=== PATIENT | female | born 1955 | race Caucasian/White ===

== ENCOUNTER → 2017-09-22 | Outpatient (CLI) | payer OTHER ==
--- NOTE | 2017-09-23 07:07 | MM ---
Reason for exam: screening (asymptomatic). Last mammogram was performed 1 year and 2 months ago. History: Patient is postmenopausal and had first child at age 36. Family history of breast cancer in maternal aunt at age 70. Physical Findings: A clinical breast exam by your physician is recommended on an annual basis and results should be correlated with mammographic findings. MG Screening Mammo w CAD Bilateral CC and MLO view(s) were taken. Prior study comparison: July 30, 2016, bilateral MG screening mammo w CAD. July 08, 2015, bilateral MG screening mammo w CAD. There are scattered fibroglandular densities. Finding: There are typically benign round, regional calcifications in the right breast. There is no discrete abnormality. ASSESSMENT: Benign, BI-RAD 2 RECOMMENDATION: Routine screening mammogram of both breasts in 1 year.
== END | disposition home or self-care (01) ==
LOC: RADMAMWWP 08:56
PROVIDERS: ATTEND Family Medicine
DX: Z12.31 Encounter for screening mammogram for malignant neoplasm of breast (principal)

== ENCOUNTER → 2018-04-23 | Outpatient (CLI) | payer OTHER ==
--- NOTE | 2018-04-23 12:47 | CT ---
EXAMINATION TYPE: CT abdomen pelvis w con DATE OF EXAM: 04/23/2018 REFERENCE: NONE HISTORY: [id number] ELEVATEDWBC R1030 LOWER ABD PAIN R509 FEVER HISTORY: Back pain, pelvic pain, rectal pain, fever REFERENCE: NONE CT DLP: 756 mGy Automated exposure control for dose reduction was used. TECHNIQUE: Helical acquisition through the abdomen and pelvis was obtained following the oral ingesti on of with Oral Contrast and following intravenous administration of 100 mL of Isovue 300. The data w as reformatted in axial, coronal and sagittal projections. FINDINGS: Visualized portions of the lungs are clear. There is no pleural or pericardial fluid. The heart is not enlarged. Within the abdomen, there are multiple gallstones within the gallbladder. The liver and spleen are no rmal. Both adrenal glands are normal. There are parapelvic cysts involving the left kidney. The right kidney appears normal. The pancreas is unremarkable. There is no significant retroperitoneal, iliac or inguinal adenopathy. Uterus and ovaries are not visualized. The bladder is not distended. There is a 9.2 cm area of concentric narrowing involving the distal descending colon and proximal sig moid colon. There is some mild associated adjacent inflammatory change. Although this may represent d iverticulitis, neoplasm would need to BE excluded. The appendix is normal. Small bowel loops are normal. There is a small left paracentral ventral hernia containing fat only with a 2 cm mouth. There is no free fluid and no free air. There is degenerative disc disease at L5-S1. There is mild facet arthropathy at this level. No bony d estructive lesion is seen. IMPRESSION: 1. LONG SEGMENT NARROWING OF THE DISTAL DESCENDING COLON AND PROXIMAL SIGMOID COLON WHICH MAY REPRESE NT DIVERTICULITIS. NEOPLASM WOULD NEED TO BE EXCLUDED. 2. CHOLELITHIASIS. 3. SMALL VENTRAL HERNIA CONTAINING FAT ONLY. 4. MILD DEGENERATIVE CHANGES WITHIN THE SPINE.
== END | disposition home or self-care (01) ==
LOC: RADCTMAIN 10:01
PROVIDERS: ATTEND Family Medicine
DX: K56.699 Other intestinal obstruction unspecified as to partial versus complete obstruction (principal); K80.20 Calculus of gallbladder without cholecystitis without obstruction; K43.9 Ventral hernia without obstruction or gangrene
CPT/HCPCS: 74177; Q9967

== ENCOUNTER → 2018-05-05 | Outpatient (CLI) | payer OTHER ==
--- NOTE | 2018-05-05 14:03 | CT ---
EXAMINATION TYPE: CT abdomen pelvis wo con DATE OF EXAM: 05/05/2018 COMPARISON: 04/23/2018 HISTORY: 62-year-old female Lower Abdominal Pain; Fever CT DLP: 880 mGycm. Automated exposure control for dose reduction was used. TECHNIQUE: Contiguous axial scanning of the abdomen and pelvis without IV contrast. Coronal and sagit roseanne reconstructions performed. FINDINGS: Heart normal size with trace basilar pericardial fluid. Strandy atelectasis inferior lingula. No pleu ral effusion. Noncontrast appearance of the liver, adrenal glands, right kidney, left kidney with parapelvic cysts, spleen, and pancreas show no gross abnormal mobility. No abnormal gallbladder distention. Small stones are present measuring up to 5 mm. No dilated small bowel, free fluid, or free air. Normal appendix. Oral contrast progressed to the hepatic flexure. Mild stool burden. There is sigmoid diverticulosis with mild wall thickening and mild surrounding inflammation proximal to mid sigmoid c olon, refer to axial images. Along the mid sigmoid, there is close apposition with the vaginal cuff and some possible bridging sof t tissue. Air within the cuff is noted. Refer to axial image 67 and coronal image 43. Scattered nonenlarged retroperitoneal lymph nodes. Bladder is urine distended. Uterus surgically absent. Changes along the vaginal cuff as mentioned abo ve. No abnormal fluid collection in the pelvis or pelvic lymphadenopathy seen. Bones: Mild degenerative changes at the hips. No osseous destructive process. IMPRESSION: 1. Sigmoid diverticulosis. The inflammatory changes along the proximal to mid sigmoid are significan tly improved from 04/23/2018; there could be either residual inflammation or new mild acute diverticul itis. Correlate with direct visualization after successful treatment. No abscess or free air. 2. Possible bridging soft tissue at the mid sigmoid contacting the vaginal cuff where some small foc i of air are present. Correlate to exclude the possibility of a postinflammatory colovaginal fistula. 3. Cholelithiasis.
== END | disposition home or self-care (01) ==
LOC: RADCTMAIN 10:17
PROVIDERS: ATTEND Family Medicine
DX: K57.30 Diverticulosis of large intestine without perforation or abscess without bleeding (principal); K80.20 Calculus of gallbladder without cholecystitis without obstruction
CPT/HCPCS: 74176

== ENCOUNTER → 2018-09-29 | Outpatient (CLI) | payer OTHER ==
--- NOTE | 2018-10-03 09:36 | MM ---
Reason for exam: screening (asymptomatic). Last mammogram was performed 1 year ago. History: Patient is postmenopausal and had first child at age 36. Family history of breast cancer in maternal aunt at age 70. Physical Findings: A clinical breast exam by your physician is recommended on an annual basis and results should be correlated with mammographic findings. MG Screening Mammo w CAD Bilateral CC and MLO view(s) were taken. Prior study comparison: September 22, 2017, bilateral MG screening mammo w CAD. July 30, 2016, bilateral MG screening mammo w CAD. There are scattered fibroglandular densities. No significant changes when compared with prior studies. ASSESSMENT: Benign, BI-RAD 2 RECOMMENDATION: Routine screening mammogram of both breasts in 1 year.
== END | disposition home or self-care (01) ==
LOC: RADMAMWWP 13:54
PROVIDERS: ATTEND Family Medicine
DX: Z12.31 Encounter for screening mammogram for malignant neoplasm of breast (principal)
CPT/HCPCS: 77067

== ENCOUNTER → 2020-09-06 | Outpatient (CLI) | payer OTHER ==
--- NOTE | 2020-09-06 13:48 | XR ---
EXAMINATION TYPE: XR wrist complete LT DATE OF EXAM: 09/06/2020 COMPARISON: None HISTORY: Chronic wrist pain following fall one year prior TECHNIQUE: Three-view left wrist FINDINGS: Scaphoid appears intact. Scapholunate space is preserved. There is a cyst within the lunate . Alignment is normal. No acute or subacute fractures are evident. No old nonunion of fractures is iden tified. Joint spaces are preserved. IMPRESSION: 1. No acute or subacute osseous abnormality.
--- NOTE | 2020-09-06 13:49 | XR ---
EXAMINATION TYPE: XR knee complete bilateral DATE OF EXAM: 09/06/2020 COMPARISON: 08/10/2011 HISTORY: Bilateral knee pain TECHNIQUE: 3 views bilateral knees FINDINGS: Left knee: No joint effusion is evident. No acute fracture or dislocation is evident. Joint spaces appear preserved. Right knee: No joint effusion is evident. Joint spaces appear preserved. Tiny medial tibial plateau s pur is present and may be new. IMPRESSION: 1. No acute osseous abnormality bilateral knees.
== END | disposition home or self-care (01) ==
LOC: RADXRYALE 10:15
PROVIDERS: ATTEND Family Medicine
DX: M25.561 Pain in right knee (principal); M25.562 Pain in left knee; M25.532 Pain in left wrist

== ENCOUNTER → 2021-08-22 | Outpatient (CLI) | payer OTHER ==
--- NOTE | 2021-08-26 13:39 | MM ---
Reason for exam: screening (asymptomatic). Last mammogram was performed 2 years and 11 months ago. History: Patient is postmenopausal and had first child at age 36. Family history of breast cancer in maternal aunt at age 70. Physical Findings: A clinical breast exam by your physician is recommended on an annual basis and results should be correlated with mammographic findings. MG Screening Mammo w CAD Bilateral CC and MLO view(s) were taken. Prior study comparison: September 29, 2018, bilateral MG screening mammo w CAD. September 22, 2017, bilateral MG screening mammo w CAD. There are scattered fibroglandular densities. There is chronic nodularity in the left breast. No significant changes when compared with prior studies. ASSESSMENT: Negative, BI-RAD 1 RECOMMENDATION: Routine screening mammogram of both breasts in 1 year.
== END | disposition home or self-care (01) ==
LOC: RADMAMWWP 13:43
PROVIDERS: ATTEND Family Medicine
DX: Z12.31 Encounter for screening mammogram for malignant neoplasm of breast (principal); Z80.3 Family history of malignant neoplasm of breast
CPT/HCPCS: 77067

== ENCOUNTER → 2021-10-29 | Outpatient (CLI) | payer OTHER ==
--- NOTE | 2021-10-30 05:07 | MR ---
EXAMINATION TYPE: MR brain and iac wo/w con DATE OF EXAM: 10/29/2021 COMPARISON: None HISTORY: Left sided hearing loss, occasionally on the right, bilateral ear pain. CONTRAST: Standard multiplanar, multisequence MRI departmental protocol images were obtained without contrast a nd with 8 mL intravenous Gadavist gadolinium contrast. Ventricles have normal size. There is no mass effect or midline shift. There is no sign of intracrani al hemorrhage. Diffusion images show no evidence of an acute infarct. There is scattered multiple foc i of increased signal in the white matter of both cerebral hemispheres. These are concentrated more i n the occipital and posterior parietal lobes. Total number is approximately 20 and these measure up t o 5 mm. The brainstem is intact. Sella turcica appears normal. There is no evidence of a sellar mass. Corpus callosum is intact. The contrast images show no pathologic enhancement. There is no evidence of orbital mass. There is no rmal enhancement of the venous sinuses. Thin sections through the posterior fossa show normal internal auditory canals. The acoustic nerve an d vestibular nerve appear normal. There is no cerebellopontine angle mass. There is normal signal pat tern of the temporal bones. There is no evidence of mastoiditis. Pituitary stalk is in the midline. O ptic chiasm appears normal. There is 2 cm mucous retention cyst left maxillary sinus. IMPRESSION: No focal posterior fossa abnormality. White matter signal changes suggestive of chronic small vessel ischemia or less likely demyelinating disease. No cortical infarct.
== END | disposition home or self-care (01) ==
LOC: RADMRIMAIN 19:38
PROVIDERS: ATTEND Otolaryngology
DX: H93.3X9 Disorders of unspecified acoustic nerve (principal); H93.19 Tinnitus, unspecified ear; H91.93 Unspecified hearing loss, bilateral
CPT/HCPCS: 70553; A9585

== ENCOUNTER → 2022-06-16 | Outpatient (CLI) | payer OTHER ==
--- NOTE | 2022-06-16 14:47 | CT ---
EXAMINATION TYPE: CT angio head neck DATE OF EXAM: 06/16/2022 HISTORY: Memory loss, hearing loss COMPARISON: MRI brain October 29, 2021 CT DLP: 1386 mGycm. Automated Exposure Control for Dose Reduction was Utilized. TECHNIQUE: CTA scan of the head and neck is performed without and with IV Contrast, patient injected with 65 mL of Isovue 370, axial images are obtained, coronal and sagittal reformatted images are rev iewed. 3D reconstructed images are created on an independent workstation and reviewed. FINDINGS: Carotid/Vascular Structures: Normal 3 vessel origin from the aortic arch without significant plaque o r stenosis. Normal origin right common carotid artery from right brachiocephalic artery. No significa nt plaque or stenosis in the common carotid arteries bilaterally. Minimal calcified plaque left carot id bulb. No significant stenosis at this level. No significant plaque or stenosis in the right caroti d bulb. Codominant vertebral arteries patent to basilar junction. No significant focal stenosis or aneurysm i n the posterior circulation. There are hypoplastic bilateral posterior communicating arteries noted. Images of the anterior circulation show patent tiny anterior communicating artery. There is no signif icant focal stenosis or aneurysm. Other: Noncontrast images of the brain show no acute intracranial hemorrhage or midline shift. Ventri cles and sulci are within normal limits in size for patient's age. Cano-white matter differentiation maintained. Visualized sinuses are clear and globes are intact bilaterally. Slight associated scoliotic curvature. Moderate disc space narrowing and mild to moderate spurring at C5-C6 level. Aoae-bp-[id number] disc space narrowing C6-C7 level. IMPRESSION: No significant abnormality is seen. NASCET criteria was used in interpretation of this exam?
== END | disposition home or self-care (01) ==
LOC: RADCTMAIN 12:42
PROVIDERS: ATTEND Psychiatry & Neurology Neurology
DX: R41.3 Other amnesia (principal); H91.92 Unspecified hearing loss, left ear; R90.89 Other abnormal findings on diagnostic imaging of central nervous system
CPT/HCPCS: 70496; 70498; Q9967

== ENCOUNTER → 2022-09-10 | Outpatient (CLI) | payer MEDICARE ==
--- NOTE | 2022-09-11 08:41 | MM ---
Reason for Exam: Screening (asymptomatic). Last mammogram was performed 1 year(s) and 1 month(s) ago. Patient History: Menarche at age 13. First Full-Term at age 36. Late child-bearing (after 30). Hysterectomy at age 47. Postmenopausal. Maternal aunt had breast cancer, age 65. Risk Values: Linnette 5 year model risk: 2.5%. NCI Lifetime model risk: 9.4%. Prior Study Comparison: 09/22/2017 Bilateral Screening Mammogram, [facility]. 09/29/2018 Bilateral Screening Mammogram, [facility]. 08/22/2021 Bilateral Screening Mammogram, [facility]. Tissue Density: There are scattered fibroglandular densities. Findings: Analyzed By CAD. There is no suspicious group of microcalcifications or new suspicious mass in either breast. No significant change from prior exams. Overall Assessment: Negative, BI-RAD 1 Management: Screening Mammogram of both breasts in 1 year. A clinical breast exam by your physician is recommended on an annual basis and results should be correlated with mammographic findings. Electronically signed and approved by: Rc Ferrera D.O.
== END | disposition home or self-care (01) ==
LOC: RADMAMWWP 14:55
PROVIDERS: ATTEND Family Medicine
DX: Z12.31 Encounter for screening mammogram for malignant neoplasm of breast (principal); Z78.0 Asymptomatic menopausal state; Z80.3 Family history of malignant neoplasm of breast
CPT/HCPCS: 77063; 77067

== ENCOUNTER → 2023-04-01 | Outpatient (CLI) | payer MEDICARE ==
--- NOTE | 2023-04-01 12:42 | P.PN ---
Subjective DATE: 04/01/2023 FOLLOW UP VISIT. Patient with obstructive sleep apnea hypopnea syndrome return to sleep center for follow-up visit. Recently patient had sleep study which documented obstructive sleep apnea hypopnea syndrome. Patient was initiated on PAP therapy and today is first visit after treatment was started. Patient was able to use PAP equipment every night for the whole night, has some problems related to the mask secondary to leak. The patient does not have significant problems with PAP pressure and humidification. [place] sleepiness scale is, which is normal. I checked information from PAP unit. PAP unit pressure 5-18, average 13.1 cm H2O. Usage is 100 % for more then 4 hours, average 7.5 hours per night. Leak increased to 44.7 l/m. Apnea Hypopnea Index is 7.9, which is slightly above normal, but showed significant improvements comparing with diagnostic sleep study on apnea-hypopnea index was 23.7. MEDICATIONS:1. Celebrex During physical exam: GENERAL: A pleasant patient without any distress. VITAL SIGNS: BP 138/74, HR 76, RR 12 , weight 192, temperature 97.1, oxygen satu ration at room air 98% . HEENT: PERRLA, EOMI.low position of soft palate, Mallapati 4 . NECK: Supple. No JVD. LUNGS: Clear to percussion and to auscultation. Good air exchange. No wheezing or rhonchi. HEART: S1, S2 regular. ABDOMEN: Soft and nontender.[] EXTREMITIES: No clubbing or cyanosis. AIR POLLUTION INSPECTOR: Awake, alert, and oriented x3. No focal deficit. Impressions: 1. Obstructive sleep apnea-hypopnea syndrome. Patient demonstrated great compliance with treatment, benefiting from treatment. 2. Mild obesity. 3. History of heart murmur. 4. History of knee problems. 5. Status post hysterectomy. 6. Status post cyst removed from the neck. Plan: 1. Continue using PAP equipment every night for the whole night. 2. To change air filter at least 1-2 times per month. 3. PAP unit should stay lower then position of the head. 4. Advised patient to remove all remaining water from humidifier canister daily and make it dry after each usage. Refill canister with fresh distilled water before each usage. 5. Sleep hygiene with regular time in bed for at least 8 hours. 6. Precautions related to driving. No driving if feel any sleepiness. 7. I will maintain prescription for PAP supplies including mask, tube, filters. We will consider to try dream where mask. 8. Follow up visit in 6 months or earlier if patient has any problems. 9. Watching weight. Thank you very much for allowing me to participate in the management of your patient. Sunny Barba MD, PhD, FAASM. Diplomat of [place] [employer], Sleep Medicine Board by [place] [employer] Product Management Manager of [facility] [place]
== END ==
LOC: 3 N SLEEP 11:39
PROVIDERS: ATTEND Internal Medicine
DX: G47.33 Obstructive sleep apnea (adult) (pediatric) (principal); E66.9 Obesity, unspecified; R01.1 Cardiac murmur, unspecified; Z98.890 Other specified postprocedural states; Z99.89 Dependence on other enabling machines and devices
CPT/HCPCS: 99212

== ENCOUNTER → 2023-08-31 | Outpatient (CLI) | payer MEDICARE ==
--- NOTE | 2023-08-31 21:35 | US ---
EXAMINATION TYPE: US abdomen complete DATE OF EXAM: 08/31/2023 COMPARISON: CT 2018 CLINICAL INDICATION: Female, 68 years old with history of R10.2 pelvic and perineal pain R31.29 other micro; Occasional abdomen pain TECHNIQUE: Multiple sonographic images of the abdomen are obtained. FINDINGS: EXAM MEASUREMENTS: Liver Length: 14.5 cm Gallbladder Wall: 0.1 cm CBD: 0.5 cm Spleen: 10.3 cm Right Kidney: 11.6 x 4.5 x 5.3 cm Left Kidney: 9.9 x 5.0 x 5.3 cm Pancreas: visualized portions wnl, limited by overlying midline bowel gas Liver: wnl Gallbladder: multiple non mobile stones seen within neck Evidence for sonographic Gardner's sign: no CBD: visualized portions wnl, limited by overlying bowel gas Spleen: wnl Right Kidney: wnl Left Kidney: visualized portions wnl, inferior pole limited by overlying bowel gas Upper IVC: wnl Abd Aorta: wnl IMPRESSION: 1. Cholelithiasis. No gallbladder wall thickening or pericholecystic fluid to suggest acute cholecyst itis. No Gardner's sign.
--- NOTE | 2023-08-31 21:38 | US ---
EXAMINATION TYPE: US pelvic complete DATE OF EXAM: 08/31/2023 COMPARISON: CT 2018 CLINICAL INDICATION: Female, 68 years old with history of R10.2 pelvic and perineal pain R31.29 other micro; Vaginal discharge, history of partial hysterectomy TECHNIQUE: . Transabdominal sonographic images of the pelvis were acquired. Transvaginal sonographi c images were medically necessary to better assess the following anatomy: ovaries Date of LMP: 2003 EXAM MEASUREMENTS: Right Ovary: not seen Left Ovary: not seen 1. Uterus: surgically absent 2. Endometrium: surgically absent 3. Right Ovary: not seen 4. Left Ovary: not seen 5. Bilateral Adnexa: wnl 6. Posterior cul-de-sac: 4.0 x 3.7 x 3.9cm hypoechoic area seen, unable to see on transvaginal exam IMPRESSION: 1. Hypoechoic area within the cul-de-sac. This does not appear as simple free fluid. Underlying mass appears to be present. Additional workup with contrast CT pelvis is recommended
== END | disposition home or self-care (01) ==
LOC: RADUSWWP 08:49
PROVIDERS: ATTEND Family Medicine
DX: K80.20 Calculus of gallbladder without cholecystitis without obstruction (principal); R10.2 Pelvic and perineal pain; R31.29 Other microscopic hematuria
CPT/HCPCS: 76700; 76830; 76856

== ENCOUNTER → 2023-09-08 | Outpatient (CLI) | payer MEDICARE ==
[2023-09-08 16:36] LABS: African American GFR (CKD) >90 (>60 ml/min/1.73 sqM); Blood Urea Nitrogen 15 mg/dL (7-17); Non-African American GFR(CKD) >90 (>60 ml/min/1.73 sqM)
--- NOTE | 2023-09-09 09:56 | CT ---
EXAMINATION TYPE: CT abdomen pelvis w con DATE OF EXAM: 09/08/2023 COMPARISON: 05/05/2018 HISTORY: Abdominal swelling CT DLP: 882.60 mGycm Automated exposure control for dose reduction was used. CONTRAST: CT scan of the abdomen pelvis is performed with IV Contrast, patient injected with 100 mL of Isovue 3 00. FINDINGS- LUNG BASES- No significant abnormality is appreciated. LIVER/GB- low-attenuation within the left lobe liver adjacent to the cells ligament compatible with localized fatty infiltration. Cholelithiasis. PANCREAS- No gross abnormality is seen. SPLEEN- No gross abnormality is seen. ADRENALS- No gross abnormality is seen. KIDNEYS/BLADDER- no hydronephrosis or nephrolithiasis. Simple left parapelvic renal cyst.. BOWEL- no evidence of obstruction. Mild diverticulosis with no CT evidence of diverticulitis. LYMPH NODES- No greater than 1cm abdominal or pelvic lymph nodes are appreciated. OSSEOUS STRUCTURES- diffuse osteopenia with multilevel degenerative change. Bilateral hip arthropath y. OTHER- fat-containing periumbilical hernia. Correlate for prior hysterectomy. On axial image 63 thro ugh 67 there is a linear air density which could represent a small fistulous tract between the vagina l cuff and a sigmoid colon. IMPRESSION- 1. On axial image 63 through 67 there is a linear air density which could represent a small fistulous tract between the vaginal cuff and sigmoid colon. 2. Diverticulosis with no CT evidence of diverticulitis. 3. Cholelithiasis with no CT evidence of cholecystitis. 4. Small hiatal hernia with distal esophageal wall thickening correlate for reflux esophagitis.
== END | disposition home or self-care (01) ==
LOC: RADCTMAIN 15:12
PROVIDERS: ATTEND Family Medicine
DX: K22.89 Other specified disease of esophagus (principal); K80.20 Calculus of gallbladder without cholecystitis without obstruction; J98.4 Other disorders of lung; R19.09 Other intra-abdominal and pelvic swelling, mass and lump; K44.9 Diaphragmatic hernia without obstruction or gangrene; K57.90 Diverticulosis of intestine, part unspecified, without perforation or abscess without bleeding
CPT/HCPCS: 82565; 84520; 74177; 36415; Q9967

== ENCOUNTER → 2023-09-14 | Outpatient (CLI) | payer MEDICARE ==
--- NOTE | 2023-09-15 16:20 | MM ---
Reason for Exam: Screening (asymptomatic). Last screening mammogram was performed 12 month(s) ago. Patient History: Menarche at age 13. First Full-Term at age 36. Late child-bearing (after 30). Hysterectomy at age 47. Postmenopausal. Maternal aunt had breast cancer, age 65. Risk Values: Linnette 5 year model risk: 2.5%. NCI Lifetime model risk: 9.0%. Prior Study Comparison: 09/29/2018 Bilateral Screening Mammogram, [facility]. 08/22/2021 Bilateral Screening Mammogram, [facility]. 09/10/2022 Bilateral MG 3D screening mammo w/cad, [facility]. Tissue Density: There are scattered fibroglandular densities. Findings: Analyzed By CAD. Pattern appears symmetrical and stable. No significant interval change is evident. No suspicious groups of microcalcifications, spiculated or lobular masses, architectural distortion or other secondary signs of malignancy are mammographically apparent. Overall Assessment: Benign, BI-RAD 2 Management: Screening Mammogram of both breasts in 1 year. A negative mammogram report should not preclude additional follow up of suspicious palpable abnormalities. Patient should continue monthly self breast exam. A clinical breast exam by your physician is recommended on an annual basis and results should be correlated with mammographic findings. Electronically signed and approved by: Wagner Shah D.O. Radiologis
== END | disposition home or self-care (01) ==
LOC: RADMAMWWP 16:24
PROVIDERS: ATTEND Family Medicine
DX: Z12.31 Encounter for screening mammogram for malignant neoplasm of breast (principal); Z78.0 Asymptomatic menopausal state; Z80.3 Family history of malignant neoplasm of breast
CPT/HCPCS: 77063; 77067

== ENCOUNTER → 2023-10-13 | Outpatient (CLI) | payer MEDICARE ==
--- NOTE | 2023-10-13 11:40 | P.PN ---
Subjective DATE: 10/13/2023 FOLLOW UP VISIT. Patient with obstructive sleep apnea hypopnea syndrome return to sleep center for follow-up visit. Information from previous visit have been reviewed. Patient is using PAP equipment every night for the whole night, getting PAP supplies in time. Patient has dryness in the mouth in the morning while using show full face mask. Sometimes it's not enough water in humidifier chamber in the morning. [place] sleepiness scale is 2, which is normal. I checked information from PAP unit. PAP unit pressure 5-18, average 11.3 cm H2O. Usage is 100 % for more then 4 hours, average 8 hours per night. Leak is increased significantly to 48.0 l/m. Apnea Hypopnea Index is 4.2, which is normal. MEDICATIONS:1. Vitamin D 2. Aspirin 81 mg once a day During physical exam: GENERAL: A pleasant patient without any distress. VITAL SIGNS: BP 115/74, HR 97, RR 12, weight 200.4, temperature 98.4, oxygen saturation at room air 99 % . HEENT: PERRLA, EOMI.low position of soft palate, Mallapati 4 . NECK: Supple. No JVD. LUNGS: Clear to percussion and to auscultation. Good air exchange. No wheezing or rhonchi. HEART: S1, S2 regular. ABDOMEN: Soft and nontender.[] EXTREMITIES: No clubbing or cyanosis. MATERIAL CLERK: Awake, alert, and oriented x3. No focal deficit. Impressions: 1. Obstructive sleep apnea-hypopnea syndrome. Patient demonstrated great compliance with treatment, benefiting from treatment. Patient continued to have some problems related to dryness in the mouth and leak from the mask. 2. Mild obesity, patient increased his weight on 8 pounds comparing his previous visit. 3. History of heart more more. 4. History of knee problems. 5. Patient is preparing for surgical treatment for problems related to gallbladder. 6. Status post hysterectomy. 7. Status post cyst removed from the neck. Temperature in she didn't humidifier and she did tube have been adjusted and I teach patient how to adjust this parameters. Plan: 1. Continue using PAP equipment every night for the whole night. 2. To change air filter at least 1-2 times per month. 3. PAP unit should stay lower then position of the head. 4. Advised patient to remove all remaining water from humidifier canister daily and make it dry after each usage. Refill canister with fresh distilled water before each usage. 5. Sleep hygiene with regular time in bed for at least 8 hours. 6. Precautions related to driving. No driving if feel any sleepiness. 7. I will maintain prescription for PAP supplies including mask, tube, filters. 8. Follow up visit in 4 months or earlier if patient has any problems. 9. Watching and losing weight. 10. Patient will start using chinstrap and nasal strips. 11. Patient will get second water chamber. Thank you very much for allowing me to participate in the management of your patient. Sunny Barba MD, PhD, FAASM. Diplomat of [place] [employer], Sleep Medicine Board by [place] [employer] Residential Real Estate Agent of [facility] [place]
== END ==
LOC: 3 N SLEEP 10:40
PROVIDERS: ATTEND Internal Medicine
DX: G47.33 Obstructive sleep apnea (adult) (pediatric) (principal); E66.9 Obesity, unspecified; Z86.79 Personal history of other diseases of the circulatory system; Z87.39 Personal history of other diseases of the musculoskeletal system and connective tissue; Z90.710 Acquired absence of both cervix and uterus; Z98.890 Other specified postprocedural states; Z99.89 Dependence on other enabling machines and devices; Z79.82 Long term (current) use of aspirin
CPT/HCPCS: 99212

== ENCOUNTER → 2024-02-09 | Outpatient (CLI) | payer MEDICARE ==
[2024-02-09 12:10] VITALS: BP 126/85; PULSE 79; RESP 16; TEMP 97.8
--- NOTE | 2024-02-09 12:28 | P.PN ---
Subjective DATE: 02/09/2024 FOLLOW UP VISIT. Patient with obstructive sleep apnea hypopnea syndrome return to sleep center for follow-up visit. Information from previous visit have been reviewed. Patient is using PAP equipment every night for the whole night, getting PAP supplies in time. The patient does not have significant problems with the mask, PAP unit and humidification. [place] sleepiness scale is 5, which is normal. I checked information from PAP unit. PAP unit pressure 5-12, average 10.5 cm H2O. Usage is 97% and 93% for more then 4 hours, average 7.5 hours per night. Leak is 18.3 l/m, which is in acceptable range. Apnea Hypopnea Index is 2.9, which is normal. MEDICATIONS:1. Aspirin 81 mg 2. Vitamin D 3. Vitamin C 4. Zinc 5. Vitamin B12 6. Probiotics During physical exam: GENERAL: A pleasant patient without any distress. VITAL SIGNS: Please see below. HEENT: PERRLA, EOMI.low position of soft palate, Mallapati 4 . NECK: Supple. No JVD. LUNGS: Clear to percussion and to auscultation. Good air exchange. No wheezing or rhonchi. HEART: S1, S2 regular. ABDOMEN: Soft and nontender.[] EXTREMITIES: No clubbing or cyanosis. METERMAN: Awake, alert, and oriented x3. No focal deficit. Impressions: 1. Obstructive sleep apnea-hypopnea syndrome. Patient demonstrated great compliance with treatment, benefiting from treatment. 2. 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 3. Mild obesity. 4. History of heart murmur. 5. History of knee problems. 6. Status post hysterectomy. 7. Status post cyst removed from the neck. 8. Status post cholecystectomy. Plan: 1. Continue using PAP equipment every night for the whole night. 2. To change air filter at least 1-2 times per month. 3. PAP unit should stay lower then position of the head. 4. Advised patient to remove all remaining water from humidifier canister daily and make it dry after each usage. Refill canister with fresh distilled water before each usage. 5. Sleep hygiene with regular time in bed for at least 8 hours. 6. Precautions related to driving. No driving if feel any sleepiness. 7. I will maintain prescription for PAP supplies including mask, tube, filters. 8. Follow up visit in 6 months or earlier if patient has any problems. 9. Watching weight. Thank you very much for allowing me to participate in the management of your patient. Sunny Barba MD, PhD, FAASM. Diplomat of [place] [employer], Sleep Medicine Board by [place] [employer] Crime Lab Technician of [facility] [place] Objective - Vital Signs Vital signs: Vital Signs Temp 97.8 F 02/09/24 11:50 Pulse 79 02/09/24 11:50 Resp 16 02/09/24 11:50 BP 126/85 02/09/24 11:50 Pulse Ox 99 02/09/24 11:50 FiO2 Intake & Output 02/08/24 02/09/24 02/09/24 18:59 06:59 18:59 Weight 90.889 kg
== END ==
LOC: 3 N SLEEP 11:23
PROVIDERS: ATTEND Internal Medicine
DX: G47.33 Obstructive sleep apnea (adult) (pediatric) (principal); E66.9 Obesity, unspecified; Z90.49 Acquired absence of other specified parts of digestive tract; Z90.710 Acquired absence of both cervix and uterus; Z86.79 Personal history of other diseases of the circulatory system; Z87.39 Personal history of other diseases of the musculoskeletal system and connective tissue; Z99.89 Dependence on other enabling machines and devices; Z98.890 Other specified postprocedural states
CPT/HCPCS: 99212

== ENCOUNTER → 2024-05-11 | Outpatient (CLI) | payer MEDICARE ==
--- NOTE | 2024-06-19 12:49 | XR ---
Patient: Alisa Bernstein P Ordering Physician: Unknown, Unknown ID: [id number] Phone, Pager: [place] ne: N/A Pager: N/A : 1955 Age/Gender: 68Y, F Primary Location: N/A Procedure: XR lumbar spin e limited Study Date: 05/11/2024 10:02:00 AM EXAMINATION TYPE: XR lumbar spine 2 or 3V DATE OF EXAM: 05/28/2024 11:09 AM CLINICAL INDICATION: Low back pain COMPARISON: CT TECHNIQUE: XR lumbar spine 2 or 3V - Frontal, lateral and coned in L5-S1 lateral views of the spine. FINDINGS: No evidence of any acute osseous pathology. No evidence of loss of vertebral body height i s seen. There is normal alignment of the lumbar vertebral bodies. Scattered disc space narrowing. Mul tilevel marginal osteophyte formation throughout the visualized spine. There is facet joint arthropat hy throughout the spine. Scattered at least mild neural foraminal stenosis. IMPRESSION: 1. No acute fracture. 2. Mild multilevel disc degeneration.
== END | disposition home or self-care (01) ==
LOC: RADXRMAIN 09:50
PROVIDERS: ATTEND Family Medicine
DX: M51.36 Other intervertebral disc degeneration, lumbar region (principal)
CPT/HCPCS: 72100

== ENCOUNTER → 2024-12-19 | Outpatient (CLI) | payer MEDICARE ==
--- NOTE | 2024-12-19 10:51 | XR ---
EXAMINATION TYPE: XR abdomen 1V DATE OF EXAM: 12/19/2024 10:47 AM COMPARISON: None. CLINICAL INDICATION: Female, 69 years old with history of [id number] ABN URINE,LBP, TECHNIQUE: Single view of the abdomen. FINDINGS: Small bowel demonstrates no evidence for dilatation or air fluid levels. Gas and fecal material is seen in non-distended colon. No convincing evidence for pneumoperitoneum. No unusual calcifications. The lung bases are clear. The osseous structures are intact. IMPRESSION: 1. Overall nonobstructive bowel gas pattern. [facility], , 12/19/2024 10:48 AM
== END | disposition home or self-care (01) ==
LOC: RADXRYALE 10:23
PROVIDERS: ATTEND Family Medicine
DX: M54.59 Other low back pain (principal); R82.90 Unspecified abnormal findings in urine
CPT/HCPCS: 74018

== ENCOUNTER → 2025-01-09 | Outpatient (CLI) | payer MEDICARE ==
--- NOTE | 2025-01-09 15:47 | MM ---
Reason for Exam: Screening (asymptomatic). Last mammogram was performed 1 year(s) and 4 month(s) ago. Patient History: Menarche at age 13. First Full-Term at age 36. Late child-bearing (after 30). Hysterectomy at age 47. Postmenopausal. Maternal aunt had breast cancer, age 65. Risk Values: Linnette 5 year model risk: 2.6%. NCI Lifetime model risk: 8.7%. Prior Study Comparison: 08/22/2021 Bilateral Screening Mammogram, LOCATED WITHIN [facility]. 09/10/2022 Bilateral MG 3D screening mammo w/cad, LOCATED [facility]. 09/14/2023 Bilateral MG 3D screening mammo w/cad, LOCATED [facility]IN [facility]. Tissue Density: There are scattered areas of fibroglandular density. Findings: Analyzed By CAD. There is no suspicious group of microcalcifications or new suspicious mass in either breast. Overall Assessment: Negative, BI-RAD 1 Management: Screening Mammogram of both breasts in 1 year. Patient should continue monthly self-breast exams. A clinical breast exam by your physician is recommended on an annual basis. This exam should not preclude additional follow-up of suspicious palpable abnormalities. Note on Linnette scores and lifetime risk: 1. A Linnette score greater than 3% is considered moderate risk. If this is the case, consider specialist referral to assess eligibility for a risk reducing agent. 2. If overall lifetime risk for the development of breast cancer is 20% or higher, the patient may qualify for future screening with alternating mammogram and breast MRI. [facility], , 01/09/2025 3:44 PM. Electronically signed and approved by: Manny Burnham M.D. Radiologist
== END | disposition home or self-care (01) ==
LOC: RADMAMWWP 13:29
PROVIDERS: ATTEND Family Medicine
DX: Z12.31 Encounter for screening mammogram for malignant neoplasm of breast (principal); R92.323 Mammographic fibroglandular density, bilateral breasts; Z78.0 Asymptomatic menopausal state; Z80.3 Family history of malignant neoplasm of breast
CPT/HCPCS: 77063; 77067

== ENCOUNTER → 2025-01-11 | Outpatient (CLI) | payer MEDICARE ==
[2025-01-11 13:23] VITALS: BP 114/75; PULSE 89; RESP 18; TEMP 98.1
--- NOTE | 2025-01-11 13:38 | P.PROGSL ---
Subjective DATE: 01/11/2025 FOLLOW UP VISIT. Patient with obstructive sleep apnea hypopnea syndrome return to sleep center for follow-up visit. Information from previous visit have been reviewed. Patient is using PAP equipment every night for the whole night, getting PAP supplies in time. The patient does not have significant problems with the mask, PAP unit and humidification. [place] sleepiness scale is 4, which is normal. I checked information from PAP unit. PAP unit pressure 5-12, average 10.9 cm H2O. Usage is 87% for more then 4 hours, average 7.5 hours per night. Leak is 15.2 l/m, which is in acceptable range. Apnea Hypopnea Index is 2.4, which is normal. MEDICATIONS have been reviewed, please see below. During physical exam: GENERAL: A pleasant patient without any distress. VITAL SIGNS: Please see below, weight is 203.4 lbs. HEENT: PERRLA, EOMI.low position of soft palate, Mallapati 4 . NECK: Supple. No JVD. LUNGS: Clear to percussion and to auscultation. Good air exchange. No wheezing or rhonchi. HEART: S1, S2 regular. ABDOMEN: Soft and nontender.[] EXTREMITIES: No clubbing or cyanosis. REGIONAL COMMERCIAL SALES MANAGER: Awake, alert, and oriented x3. No focal deficit. Impressions: 1. Obstructive sleep apnea-hypopnea syndrome. Patient demonstrated great compliance with treatment, benefiting from treatment. 2. 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 3. History of heart murmur. 4. History of knee problems. 5. Status post hysterectomy. 6. Status post cyst removed from the neck. 7. Status post cholecystectomy. 8. Mild obesity, BMI 34.6. Plan: 1. Continue using PAP equipment every night for the whole night. 2. Sleep hygiene with regular time in bed for at least 7.5-8 hours 3. PAP unit should stay lower then position of the head. 4. Advised patient to remove all remaining water from humidifier canister daily and make it dry after each usage. Refill canister with fresh distilled water before each usage. 5. Watching and losing weight. 6. Precautions related to driving. No driving if feel any sleepiness. 7. I will maintain prescription for PAP supplies including mask, tube, filters. 8. Follow up visit in 8 months or earlier if patient has any problems. Thank you very much for allowing me to participate in the management of your patient. Sunny Barba MD, PhD, FAASM. Diplomat of [place] [employer], Sleep Medicine Board by [place] [employer] [facility] [place] Objective - Vital Signs Vital Signs: Vital Signs Temp 98.1 F 01/11/25 13:21 Pulse 89 01/11/25 13:21 Resp 18 01/11/25 13:21 BP 114/75 01/11/25 13:21 Pulse Ox 99 01/11/25 13:21 FiO2 Intake & Output 01/10/25 01/11/25 01/11/25 18:59 06:59 18:59 Weight 92.193 kg Home Medications: Home Medications Medication Instructions Recorded Confirmed Type Ascorbic Acid [Vitamin C] 500 mg PO DAILY 09/07/17 09/09/17 History Calcium Carbonate [Calcium] 600 mg PO DAILY 09/07/17 09/09/17 History Cholecalciferol (Vitamin D3) 2,000 unit PO DAILY 09/07/17 09/09/17 History [Vitamin D3] Multivitamins, Thera [Multivitamin 1 tab PO DAILY 09/07/17 09/09/17 History (formulary)] [place]-3 Fatty Acids/Fish Oil [Fish 1 each PO DAILY 09/07/17 09/09/17 History Oil 1,000 mg Softgel] Celecoxib [CeleBREX] 100 mg PO DAILY 01/11/25 01/11/25 History
== END ==
LOC: 3 N SLEEP 13:07
PROVIDERS: ATTEND Internal Medicine
DX: G47.33 Obstructive sleep apnea (adult) (pediatric) (principal); E66.9 Obesity, unspecified; Z90.49 Acquired absence of other specified parts of digestive tract; Z86.79 Personal history of other diseases of the circulatory system; Z90.710 Acquired absence of both cervix and uterus; Z68.34 Body mass index [BMI] 34.0-34.9, adult
CPT/HCPCS: 99212

== ENCOUNTER → 2025-04-03 | Outpatient (CLI) | payer MEDICARE ==
--- NOTE | 2025-04-03 09:45 | XR ---
EXAMINATION TYPE: XR shoulder complete RT DATE OF EXAM: 04/03/2025 CLINICAL HISTORY: pain TECHNIQUE: Three views of the right shoulder are obtained. COMPARISON: None FINDINGS: There is no acute fracture/dislocation evident. The acromioclavicular and glenohumeral yanni int spaces appear within normal limits. The visualized ribs are intact and unremarkable. IMPRESSION: 1. There is no acute fracture or dislocation. ICD 10 NO FRACTURE, INITIAL EVALUATION [facility], , 04/03/2025 9:42 AM
--- NOTE | 2025-04-03 09:47 | XR ---
EXAMINATION TYPE: XR foot complete bilateral DATE OF EXAM: 04/03/2025 9:34 AM COMPARISON: None. CLINICAL INDICATION: Female, 69 years old with history of [id number] PAIN ANKLES,SHOULDER P AIN, pain TECHNIQUE: XR foot complete bilateral XX views were obtained. FINDINGS: There is no acute fracture/dislocation evident. The joint spaces appear within normal limits. The o verlying soft tissue appears unremarkable. IMPRESSION: No acute fracture or dislocation. [facility], , 04/03/2025 9:45 AM
== END | disposition home or self-care (01) ==
LOC: RADXRYALE 08:58
PROVIDERS: ATTEND Family Medicine
DX: M25.572 Pain in left ankle and joints of left foot (principal); M25.571 Pain in right ankle and joints of right foot; M25.511 Pain in right shoulder